=== PATIENT | male | born 1985 | race Caucasian/White ===

== ENCOUNTER 2018-11-25 19:02 | Inpatient (IN) | payer MEDICARE, MEDICAID ==
[~2018-11-25] VITALS: Ht 175.3 cm; Wt 63.5 kg
[2018-11-25 19:03] VITALS: BP 110/68
[2018-11-25] MEDS ORDERED: HALOPERIDOL1 MG ORAL (19:04)
--- NOTE | 2018-11-25 19:17 | NUR ---
ED Nurse Note: Patient was brought in by ambulance JULITA from [facility]. oral temp was 100.9F. per emt, patient has been off his psych meds for about 3 weeks. patient is awake, reports that he is cold, attempted to ask him further question but patient is verbally abusive threatening "don't touch me, I will kill you." Attempted to administer tylenol for pain but patient is agitated and not taking any medication at this time.
[2018-11-25] MEDS ORDERED: DiphenhydrAMINE 50mg/ml Inj IM ONE (19:30)
[2018-11-25] MEDS ORDERED: Haloperidol 5mg/ml Inj IM ONE (19:30)
--- NOTE | 2018-11-25 20:44 | Emergency Room Report ---
History of Present Illness General Chief Complaint: Behavioral Complaint Source: Patient (Reinaldo Samuels) Present Illness HPI 33-year-old male patient presents the ER brought in by ambulance complaining of behavioral disorder. Patient is a poor historian, currently saying "do not touch me" and "do not help me". Denies acute complaints. Reports has not been taking his psych meds for the past 3 weeks. Reports hearing voices. Denies SI or HI. States does not know the names of medications he is been taking. Patient is heard speaking to himself. Has a fever on presentation in the ER. Reports cough. (Reinaldo Samuels) Allergies: Coded Allergies: No Known Allergies (Unverified , 11/25/18) Patient History Past Medical History: see triage record Reviewed Nursing Documentation: PMH: Agreed; PSxH: Agreed (Reinaldo Samuels) Nursing Documentation-PMH Past Medical History: No History, Except For History Of Psychiatric Problem: Yes - bipolar (Reinaldo Samuels) Review of Systems All Other Systems: negative except mentioned in HPI (Reinaldo Samuels) Physical Exam Vital Signs Date Time Temp Pulse Resp B/P (MAP) Pulse Ox O2 Delivery O2 Flow Rate FiO2 11/25/18 18:57 100.9 110 18 110/68 98 Room Air Sp02 EP Interpretation: reviewed, normal General Appearance: well appearing, no apparent distress, alert, GCS 15, non- toxic Head: normocephalic, atraumatic Eyes: bilateral eye normal inspection, bilateral eye PERRL ENT: hearing grossly normal, normal pharynx, no angioedema, normal voice Neck: full range of motion, no meningismus Respiratory: lungs clear, normal breath sounds, no rhonchi, no respiratory distress, no accessory muscle use, no wheezing, speaking full sentences Cardiovascular #1: regular rate, rhythm, no edema Gastrointestinal: non tender, soft, no mass, non-distended, no guarding, no rebound Genitourinary: no CVA tenderness Musculoskeletal: back normal, digits/nails normal, gait/station normal, normal range of motion, non-tender Neurologic: alert, oriented x3, responsive, motor strength/tone normal, sensory intact, other - negative Peterson (Abril,Reinaldo P.A.) Procedures Lumbar Puncture Consent: Other Location: L4-L5 Anesthesia: 1% Lidocaine Volume Anesthetic (ccs): 3 Prep: bedadine Needle Size: 2 1/2 CSF: clear Post-Procedure: recumbent position Attempts: One Complications: none Patient Tolerated: Well (Jacques Peterson MD) Procedural Sedation Consent: Emergent Time out called at: 23:50 Pre-Sedation Assessment: Eval. Immed. Prior to Sed Airway Assessment (Malampati): I Heart: normal Lungs: normal Abdomen: normal Extremities: normal Procedures/Plans: Other - lumbar puncture Plan for Moderate Sedation: Other - ketamine ASA Score: I Procedure Narrative Patient was given IV ketamine slowly 120 mg. Patient was subsequent noted to have adequate sedation. Procedure was subsequently performed without any complications. Start Time: 23:55 End Time: 00:05 Communication: continued confusion Mental Status: confused Skin Condition: WNL Abdomen: WNL Nausea: NO Vomiting: NO (Jacques Peterson MD) Medical Decision Making PA Attestation Dr. Peterson is my supervising Physician whom patient management has been discussed with. (Reinaldo Samuels P.A.) Diagnostic Impression: Primary Impression: Behavioral disorder Additional Impression: Febrile illness, acute ER Course Pt. presents to the ED c/o behavioral complaint. Ddx considered but are not limited to anxiety, depression, drug use, alcohol use , behavioral disorder, influenza, sepsis, UTI, pneumonia, URI, meningitis. No meningismus, negative Brudzinski, low suspicion for meningitis. Vital signs: are WNL, pt. is febrile. With Tylenol in the ER. Ordered labs, urine drug screen, serum alcohol. ER COURSE: Patient being abrasion, believe patient requires, sedation provided with Haldol and Benadryl while in the ER. On repeat exam patient is resting comfortably no acute distress, more Physical exam benign. Chest x-ray negative for acute disease. CBC shows small elevation WBC with left shift. Provide patient with Tamiflu and Rocephin to cover for possible influenza and bacterial infection. CMP unremarkable UA negative Urine drug screen negative Lactic Acid WNL No elevation in serum alcohol, no elevation in acetaminophen or salicylate levels Influenza swab negative. We will admit patient for psychosis and fever. Discussed patient care with Dr. Peterson, agrees with assessment treatment plan. Calm and able to answer questions. Denies acute complaints. No meningismus, low suspicion for meningitis. Patient to be admitted to Dr. Blackwood for psychosis and acute febrile illness. LP performed by Dr. Peterson while in the ER. - Please note that this Emergency Department Report was dictated using [employer]itting machine fixer head technology software, occasionally this can lead to erroneous entry secondary to interpretation by the dictation equipment. [employer] [facility] Test 11/25/18 21:06 11/25/18 21:54 White Blood Count 11.9 K/UL (4.8-10.8) Red Blood Count 4.03 M/UL (4.70-6.10) Hemoglobin 12.0 G/DL (14.2-18.0) Hematocrit 35.3 % (42.0-52.0) Mean Corpuscular Volume 88 FL (80-99) Mean Corpuscular Hemoglobin 29.8 PG (27.0-31.0) Mean Corpuscular Hemoglobin Concent 34.1 G/DL (32.0-36.0) Red Cell Distribution Width 12.4 % (11.6-14.8) Platelet Count 212 K/UL (150-450) Mean Platelet Volume 5.8 FL (6.5-10.1) Neutrophils (%) (Auto) 79.8 % (45.0-75.0) Lymphocytes (%) (Auto) 11.1 % (20.0-45.0) Monocytes (%) (Auto) 6.4 % (1.0-10.0) Eosinophils (%) (Auto) 2.1 % (0.0-3.0) Basophils (%) (Auto) 0.6 % (0.0-2.0) Sodium Level 133 MMOL/L (136-145) Potassium Level 3.4 MMOL/L (3.5-5.1) Chloride Level 100 MMOL/L (98-107) Carbon Dioxide Level 26 MMOL/L (21-32) Anion Gap 7 mmol/L (5-15) Blood Urea Nitrogen 16 mg/dL (7-18) Creatinine 0.9 MG/DL (0.55-1.30) Estimat Glomerular Filtration Rate > 60 mL/min (>60) Glucose Level 131 MG/DL (74-106) Lactic Acid Level 1.70 mmol/L (0.4-2.0) Calcium Level 7.9 MG/DL (8.5-10.1) Total Bilirubin 0.6 MG/DL (0.2-1.0) Aspartate Amino Transf (AST/SGOT) 25 U/L (15-37) Alanine Aminotransferase (ALT/SGPT) 22 U/L (12-78) Alkaline Phosphatase 73 U/L (46-116) Total Protein 6.2 G/DL (6.4-8.2) Albumin 3.1 G/DL (3.4-5.0) Globulin 3.1 g/dL Albumin/Globulin Ratio 1.0 (1.0-2.7) Salicylates Level < 0.2 ug/mL (2.8-20) Acetaminophen Level 4 MCG/ML (10-30) Serum Alcohol < 3 mg/dL Urine Color Pale yellow Urine Appearance Clear Urine pH 7 (4.5-8.0) Urine Specific [place] 1.005 (1.005-1.035) Urine Protein Negative (NEGATIVE) Urine Glucose (UA) Negative (NEGATIVE) Urine Ketones Negative (NEGATIVE) Urine Blood Negative (NEGATIVE) Urine Nitrite Negative (NEGATIVE) Urine Bilirubin Negative (NEGATIVE) Urine Urobilinogen Normal MG/DL (0.0-1.0) Urine Leukocyte Esterase Negative (NEGATIVE) Urine Opiates Screen Negative (NEGATIVE) Urine Barbiturates Screen Negative (NEGATIVE) Phencyclidine (PCP) Screen Negative (NEGATIVE) Urine Amphetamines Screen Negative (NEGATIVE) Urine Benzodiazepines Screen Negative (NEGATIVE) Urine Cocaine Screen Negative (NEGATIVE) Urine Marijuana (THC) Screen Negative (NEGATIVE) (Reinaldo Samuels.A.) ER Course . Patient presented for altered mental status and fever. Differential diagnosis include was not limited to meningitis, viral encephalitis, pneumonia influenza, urinary tract infection, cholangitis among others. Because of complexity of patient's case laboratory testing and imaging studies were ordered. Patient was noted to have slightly elevated white blood count with a left shift. Patient does not show any evidence of focal infection. Chest x- ray read by radiology showed no evidence of acute infiltrate. Patient was started on IV antibiotics. Lumbar puncture was performed with ketamine sedation due to patient's confusion and high fever. Patient was noted to be disoriented with inability to correctly state the year. Patient was given IV antibiotics. Dr. Nikolas Blackwood was contacted for inpatient management due to panel physician. ..Spinal tap was performed under sedation with ketamine. Patient tolerated procedure well. Patient will be admitted for further evaluation of acute febrile illness and management of psychosis. (Jacques Peterson MD) Chest X-Ray Diagnostic Results Chest X-Ray Diagnostic Results : Chest X-Ray Ordered: Yes # of Views/Limited/Complete: 1 View Indication: Chest Pain EP Interpretation: Yes PA Xray: Interpretation reviewed, by supervising MD, and agrees with findings. Interpretation: no consolidation, no effusion, no pneumothorax, no acute cardiopulmonary disease Impression: No acute disease KEYSHAWN Scribe Text Jeramy Samuels PA-C (Reinaldo Samuels P.AVahid) CT/MRI/US Diagnostic Results CT/MRI/US Diagnostic Results : Imaging Test Ordered: CT head Impression No acute infarct, hemorrhage, mass or edema. (Reinaldo Samuels P.AVahid) Last Vital Signs Date Time Temp Pulse Resp B/P (MAP) Pulse Ox O2 Delivery O2 Flow Rate FiO2 11/25/18 19:07 110 18 Room Air 11/25/18 19:03 100.9 110/68 98 (Reinaldo Samuels P.AVahid) Status: unchanged (Jacques Peterson MD) Disposition: ADMITTED INPATIENT Condition: Serious Referrals: NOT CHOSEN IPA/,REFERRING (PCP) Reinaldo Samuels Nov 25, 2018 20:44 Jacques Peterson MD Nov 26, 2018 00:08
--- NOTE | 2018-11-25 20:46 | Diagnostic Imaging Report ---
EXAM: XR Chest, 1 View CLINICAL HISTORY: PAIN TECHNIQUE: Frontal view of the chest. COMPARISON: No relevant prior studies available. FINDINGS: Lungs: Unremarkable. No consolidation. Pleural space: Unremarkable. No pneumothorax. Heart: Unremarkable. No cardiomegaly. Mediastinum: Unremarkable. Bones/joints: Unremarkable. IMPRESSION: Normal chest x-ray.
[2018-11-25 21:20] VITALS: BP 115/71
[2018-11-25 21:21] LABS: BASOPHILS % (AUTO) 0.6 % (0.0-2.0); EOSINOPHILS % (AUTO) 2.1 % (0.0-3.0); HEMATOCRIT 35.3 % (42.0-52.0); LYMPHOCYTES % (AUTO) 11.1 % (20.0-45.0); MEAN CORPUSCULAR VOLUME 88 FL (80-99); MONOCYTES % (AUTO) 6.4 % (1.0-10.0); NEUTROPHILS % (AUTO) 79.8 % (45.0-75.0); PLATELET COUNT 212 K/UL (150-450); RED BLOOD COUNT 4.03 M/UL (4.70-6.10); RED CELL DISTRIBUTION WIDTH 12.4 % (11.6-14.8); WHITE BLOOD COUNT 11.9 K/UL (4.8-10.8)
[2018-11-25 21:33] LABS: ANION GAP 7 mmol/L (5-15); BLOOD UREA NITROGEN 16 mg/dL (7-18); CALCIUM 7.9 MG/DL (8.5-10.1); CARBON DIOXIDE 26 MMOL/L (21-32); CHLORIDE 100 MMOL/L (98-107); CREATININE 0.9 MG/DL (0.55-1.30); POTASSIUM 3.4 MMOL/L (3.5-5.1); SODIUM 133 MMOL/L (136-145)
[2018-11-25 21:37] LABS: ALANINE AMINOTRANSFERASE 22 U/L (12-78); ALBUMIN 3.1 G/DL (3.4-5.0); ALKALINE PHOSPHATASE 73 U/L (46-116); ASPARTATE AMINO TRANSFERASE 25 U/L (15-37); BILIRUBIN,TOTAL 0.6 MG/DL (0.2-1.0)
[2018-11-25] MEDS ORDERED: Oseltamivir 75mg cap ORAL ONE (22:04)
[2018-11-25 22:13] LABS: APPEARANCE,URINE CLEAR; BILIRUBIN, URINE NEGATIVE (NEGATIVE); COLOR,URINE PALE YELLOW; GLUCOSE, URINE (UA) NEGATIVE (NEGATIVE); KETONES,URINE NEGATIVE (NEGATIVE); LEUKOCYTE ESTERASE ,URINE NEGATIVE (NEGATIVE); NITRITE,URINE NEGATIVE (NEGATIVE); PH,URINE 7 (4.5-8.0); PROTEIN,URINE NEGATIVE (NEGATIVE); UROBILINOGEN,URINE NORMAL MG/DL (0.0-1.0)
[2018-11-25] MEDS ORDERED: cefTRIAXone 1 GM in NS 55 ML IVPB ONE (22:15)
[2018-11-25] MEDS ORDERED: Lidocaine 1% MPF 10mg/ml 5ml IM ONE (23:15)
[2018-11-25 23:40] VITALS: BP 116/72
[2018-11-25] MEDS ORDERED: Ketamine 500mg Inj IV ONE (23:45)
--- NOTE | 2018-11-25 23:45 | NUR ---
HAND-OFF: Pt was moved to Room Trauma [facility] by Dr. Peterson. Report given to Jazmin/RN for continue care. Pt is awake, still very agitated at this time.
[2018-11-25 23:50] VITALS: BP 102/53
--- NOTE | 2018-11-25 23:52 | Diagnostic Imaging Report ---
EXAM: CT Head Without Intravenous Contrast CLINICAL HISTORY: AMS TECHNIQUE: Axial computed tomography images of the head/brain without intravenous contrast. CTDI is 0.15, 70.38 mGy and DLP is 1499 mGy-cm. One or more of the following dose reduction techniques were used: automated exposure control, adjustment of the mA and/or kV according to patient size, use of iterative reconstruction technique. COMPARISON: No relevant prior studies available. FINDINGS: Brain: No acute infarct, hemorrhage, mass or edema. No significant white matter disease. Ventricles: Unremarkable. No ventriculomegaly. Bones/joints: Age-indeterminate fracture of the left nasal bone. No acute calvarial abnormality. Soft tissues: Unremarkable. Sinuses: Mild mucosal thickening in the paranasal sinuses. Mastoid air cells: Unremarkable as visualized. No mastoid effusion. IMPRESSION: No acute infarct, hemorrhage, mass or edema.
--- NOTE | 2018-11-26 00:30 | NUR ---
ED Nurse Note: Verified w/ ERMD regarding pt's admit status to [facility], ERMD stated pt is clear to go to [facility] instead of tele. ERMD notified regarding pt's lab status as well, no new orders received. ERMD notified pt' temp 103, received order for toradol 30mg via IV. cooling measures done.
--- NOTE | 2018-11-26 01:14 | NUR ---
ED Nurse Note: REPORT GIVEN TO LILIAM RUIZ, PT AWAKE, AMBULATED W/ STEADY GAIT TO RESTROOM, AIRWAY INTACT, RESP EVEN AND UNLABORED, NO DISTRESS AT THIS TIME.
[2018-11-26] MEDS ORDERED: Ketorolac 30mg Inj IV ONE (01:15)
--- NOTE | 2018-11-26 01:30 | NUR ---
ED Nurse Note: pt transferred to MS via gurney, All belongings sent with pt, sitter present on MS, vss, airway intact, resp even and unlabored, arousable to light shake, no neuro changes.
[2018-11-26 01:40] VITALS: BP 88/42
--- NOTE | 2018-11-26 02:07 | NUR ---
NURSE NOTES: Received report from LILIAM Sahu from ED. Patient arrived via gurney, mildly sedated. Robb Catalan, at bedside as patient reported as combative. IV site asymptomatic. Temp at 100.5 upon arrival to unit. Contacted Dr Blackwood for admission orders. Belongings checked and recorded. Patient oriented to room. Bed on lowest position, 3 side rails up, call light within reach.
[2018-11-26 04:00] VITALS: BP 130/53
[2018-11-26] MEDS ORDERED: D5 1/2NS 1,000 ML IV SCH (06:00)
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
[2018-11-26] MEDS ORDERED: LORazepam Inj 2mg/ml 1ml IM ONE (07:15)
[2018-11-26] MEDS ORDERED: Haloperidol 5mg/ml Inj IM ONE (07:15)
[2018-11-26] MEDS ORDERED: DiphenhydrAMINE 50mg/ml Inj IM ONE (07:15)
--- NOTE | 2018-11-26 07:46 | NUR ---
HAND-OFF: Report given to LILIAM Sarmiento. Patient became combative at 0600, called security, Dr Mary medina. Sitter at the bedside.
--- NOTE | 2018-11-26 07:51 | NUR ---
NURSE NOTES: Received patient asleep. Easily arousable. With 4 point restraints for combative behavior. With sitter at bedside. No IV access at this time. MD aware. will attempt to start. Bed in lowest position. Will continue to monitor.
[2018-11-26 08:00] VITALS: BP 124/66
[2018-11-26] MEDS: Heparin 5000 units/ml inj SUBQ SCH ×3 (08:28→22:24)
[2018-11-26] MEDS: Azithromycin 250mg tab ORAL SCH (08:28)
[2018-11-26] MEDS ORDERED: Oseltamivir 75mg cap ORAL SCH (09:00)
--- NOTE | 2018-11-26 09:42 | History & Physical ---
History and Physical History & Physicial History and Physical HPI Patient is a 33-year-old male patient presents the ER brought in by ambulance complaining of behavioral disorder. Noted to have high fever, altered mental status in the ED, no seizures of focal signs. Patient is a poor historian, currently saying "do not touch me" and "do not help me". Denies acute complaints. Reports has not been taking his psych meds for the past 3 weeks. Reports hearing voices. Denies SI or HI. States does not know the names of medications he is been taking. Patient is heard speaking to himself. Reports cough. CXR no infiltrates, UA negative, CT head negative, LP negative, Influenza Negative Allergies: No Known Allergies Past Medical History: - bipolar All Other Systems: negative except mentioned in HPI Physical Exam Vital Signs Noted Date Time Temp Pulse Resp B/P (MAP) Pulse Ox O2 Delivery O2 Flow Rate FiO2 11/25/18 18:57 100.9 110 18 110/68 98 Room Air General Appearance: Chronically ill appearing, unkempt, confused, agitated toxic apperaing Head: normocephalic, atraumatic Eyes: bilateral eye normal inspection, bilateral eye PERRL ENT: hearing grossly normal, normal pharynx, no angioedema, normal voice Neck: full range of motion, no meningismus Respiratory: lungs clear, normal breath sounds, no rhonchi, no respiratory distress, no accessory muscle use, no wheezing, speaking full sentences Cardiovascular: HS1, HS2 RRR, regular rate, rhythm, no edema Gastrointestinal: non tender, soft, no mass, non-distended, no guarding, no rebound Genitourinary: no CVA tenderness Musculoskeletal: back normal, digits/nails normal, gait/station normal, normal range of motion, non-tender Neurologic: agitated, oriented x3, responsive, motor strength/tone normal, sensory intact, other - negative Brudzijosiki Impression: Fever, Altered mental status Behavioral disorder Bipolar disorder Cough, no pneumonia on CXR Plan: Broad spectrum antibiotics Psychiatry, Neurology and Infectious Disease Referrals Sedation PRN IVF Labs PPX O2 PRN Thiamine Labs Test 11/25/18 21:06 11/25/18 21:54 White Blood Count 11.9 K/UL (4.8-10.8) Red Blood Count 4.03 M/UL (4.70-6.10) Hemoglobin 12.0 G/DL (14.2-18.0) Hematocrit 35.3 % (42.0-52.0) Mean Corpuscular Volume 88 FL (80-99) Mean Corpuscular Hemoglobin 29.8 PG (27.0-31.0) Mean Corpuscular Hemoglobin Concent 34.1 G/DL (32.0-36.0) Red Cell Distribution Width 12.4 % (11.6-14.8) Platelet Count 212 K/UL (150-450) Mean Platelet Volume 5.8 FL (6.5-10.1) Neutrophils (%) (Auto) 79.8 % (45.0-75.0) Lymphocytes (%) (Auto) 11.1 % (20.0-45.0) Monocytes (%) (Auto) 6.4 % (1.0-10.0) Eosinophils (%) (Auto) 2.1 % (0.0-3.0) Basophils (%) (Auto) 0.6 % (0.0-2.0) Sodium Level 133 MMOL/L (136-145) Potassium Level 3.4 MMOL/L (3.5-5.1) Chloride Level 100 MMOL/L (98-107) Carbon Dioxide Level 26 MMOL/L (21-32) Anion Gap 7 mmol/L (5-15) Blood Urea Nitrogen 16 mg/dL (7-18) Creatinine 0.9 MG/DL (0.55-1.30) Estimat Glomerular Filtration Rate > 60 mL/min (>60) Glucose Level 131 MG/DL (74-106) Lactic Acid Level 1.70 mmol/L (0.4-2.0) Calcium Level 7.9 MG/DL (8.5-10.1) Total Bilirubin 0.6 MG/DL (0.2-1.0) Aspartate Amino Transf (AST/SGOT) 25 U/L (15-37) Alanine Aminotransferase (ALT/SGPT) 22 U/L (12-78) Alkaline Phosphatase 73 U/L (46-116) Total Protein 6.2 G/DL (6.4-8.2) Albumin 3.1 G/DL (3.4-5.0) Globulin 3.1 g/dL Albumin/Globulin Ratio 1.0 (1.0-2.7) Salicylates Level < 0.2 ug/mL (2.8-20) Acetaminophen Level 4 MCG/ML (10-30) Serum Alcohol < 3 mg/dL Urine Color Pale yellow Urine Appearance Clear Urine pH 7 (4.5-8.0) Urine Specific [place] 1.005 (1.005-1.035) Urine Protein Negative (NEGATIVE) Urine Glucose (UA) Negative (NEGATIVE) Urine Ketones Negative (NEGATIVE) Urine Blood Negative (NEGATIVE) Urine Nitrite Negative (NEGATIVE) Urine Bilirubin Negative (NEGATIVE) Urine Urobilinogen Normal MG/DL (0.0-1.0) Urine Leukocyte Esterase Negative (NEGATIVE) Urine Opiates Screen Negative (NEGATIVE) Urine Barbiturates Screen Negative (NEGATIVE) Phencyclidine (PCP) Screen Negative (NEGATIVE) Urine Amphetamines Screen Negative (NEGATIVE) Urine Benzodiazepines Screen Negative (NEGATIVE) Urine Cocaine Screen Negative (NEGATIVE) Urine Marijuana (THC) Screen Negative (NEGATIVE) CXR no infiltrates, UA negative, CT head negative, LP negative, Influenza Negative Chest X-Ray Impression: No acute disease,no consolidation, no effusion, no pneumothorax , no acute cardiopulmonary disease CT head Impression No acute infarct, hemorrhage, mass or edema. Tj Hernandez MD Nov 26, 2018 09:42
[2018-11-26] MEDS ORDERED: LORazepam Inj 2mg/ml 1ml IV PRN (09:45)
[2018-11-26 10:02] VITALS: BP 112/66
[2018-11-26] MEDS: D5NS 1,000 ML IV SCH ×2 (10:11→22:25)
--- NOTE | 2018-11-26 10:53 | NUR ---
NURSE NOTES: Dr. Lee and Trevor made aware of Consult order. Spoke with Dr. Ojeda, made aware of patient behavior. Patient very agitated and combative even after Ativan dose. per MD , may dc sitter only when patient calm. and will se patient in PM. noted. will cont to monitor patient.
[2018-11-26] MEDS ORDERED: cefTRIAXone 2 GM in D5W 55 ML IVPB SCH (11:00)
[2018-11-26] MEDS ORDERED: DiphenhydrAMINE 50mg/ml Inj IM SCH ×2 (11:00→20:30)
[2018-11-26] MEDS ORDERED: Haloperidol 5mg/ml Inj IM SCH ×2 (11:00→20:30)
[2018-11-26 12:00] VITALS: BP 122/66
[2018-11-26] MEDS ORDERED: Vancomycin 1250mg/D5W 275ml IVPB ONE (12:00)
[2018-11-26] MEDS ORDERED: Ampicillin 2 GM in NS 110 ML IV SCH (13:00)
--- NOTE | 2018-11-26 13:24 | NUR ---
CASE MANAGEMENT: REVIEW PRESENTED TO ED FROM STREETS CC: FEVER . HEARING VOICES SI: A-FIB . AMS LUMBAR PUNCTURE 11/25 T 103.8 HR 110 RR 18 BP 110/68 SAT 98% ROOM AIR WBC 11.9 H/H 12.0/35.3 NA 133 K 3.4 IS: TYLENOL PO X1 HALDOL IM X1 BENADRYL IM X1 CEFTRIAXONE IV X1 INTERQUAL CRITERIA MET: PATIENT ADMITTED TO MED/SURG UNIT 11/25/2018 DCP: PATIENT IS FROM HOME
--- NOTE | 2018-11-26 15:20 | NUR ---
NURSE NOTES: patient seen by Dr. Ojeda. with order to DC sitter.
[2018-11-26] MEDS: Vancomycin 750mg/NS 275ml IVPB SCH ×4 (15:31→15:32)
--- NOTE | 2018-11-26 15:41 | Infectious Diseases Prog Note ---
Assessment/Plan Assessment/Plan Full consult to follow: A) 1) sepsis, ams, fevers, leukocytosis, ? source 2) LP noted, doubt meningitis 3) ? influenza infection/viral syndrome 4) bipolar disease P) 1) on vancomycin, ceftriaxone, ampicillin and tamiflu 2) check cultures, labs and chest x-ray, check final csf culture 3) thank you Subjective Allergies: Coded Allergies: No Known Allergies (Unverified , 11/25/18) Objective Vital Signs Last 24 Hour Vital Signs Date Time Temp Pulse Resp B/P (MAP) Pulse Ox O2 Delivery O2 Flow Rate FiO2 11/26/18 12:00 98.1 82 18 122/66 (84) 96 11/26/18 10:02 97.5 86 18 112/66 (81) 96 11/26/18 09:00 Room Air 11/26/18 08:00 97.5 86 18 124/66 (85) 96 11/26/18 04:00 98.2 94 20 130/53 (78) 96 11/26/18 01:47 Room Air 11/26/18 01:40 100.5 103 16 88/42 (57) 97 11/26/18 01:39 100.5 11/26/18 01:27 103.0 103 18 108/87 98 Room Air 11/25/18 23:50 103.8 114 18 98 Room Air 122 98 108 98 107 98 104 11/25/18 23:40 100.1 106 18 116/72 98 Room Air 11/25/18 22:32 100.1 11/25/18 21:20 103.1 98 18 115/71 98 Room Air 11/25/18 20:09 100.2 11/25/18 19:07 110 18 Room Air 11/25/18 19:03 100.9 110 18 110/68 98 Room Air 11/25/18 18:57 100.9 110 18 110/68 98 Room Air Height (Feet): 5 Height (Inches): 9.00 Weight (Pounds): 140 Microbiology Date/Time Source Procedure Growth Status 11/25/18 23:55 Cerebral Spinal Fluid Gram Stain - Final Resulted 11/25/18 23:55 Cerebral Spinal Fluid CSF Culture Pending Resulted 11/25/18 22:19 Nasal Nares Influenza Types A,B Antigen (RADHA) - Final Complete Laboratory Tests Test 11/25/18 21:06 11/25/18 21:54 11/25/18 23:55 White Blood Count 11.9 K/UL (4.8-10.8) H Red Blood Count 4.03 M/UL (4.70-6.10) L Hemoglobin 12.0 G/DL (14.2-18.0) L Hematocrit 35.3 % (42.0-52.0) L Mean Corpuscular Volume 88 FL (80-99) Mean Corpuscular Hemoglobin 29.8 PG (27.0-31.0) Mean Corpuscular Hemoglobin Concent 34.1 G/DL (32.0-36.0) Red Cell Distribution Width 12.4 % (11.6-14.8) Platelet Count 212 K/UL (150-450) Mean Platelet Volume 5.8 FL (6.5-10.1) L Neutrophils (%) (Auto) 79.8 % (45.0-75.0) H Lymphocytes (%) (Auto) 11.1 % (20.0-45.0) L Monocytes (%) (Auto) 6.4 % (1.0-10.0) Eosinophils (%) (Auto) 2.1 % (0.0-3.0) Basophils (%) (Auto) 0.6 % (0.0-2.0) Sodium Level 133 MMOL/L (136-145) L Potassium Level 3.4 MMOL/L (3.5-5.1) L Chloride Level 100 MMOL/L (98-107) Carbon Dioxide Level 26 MMOL/L (21-32) Anion Gap 7 mmol/L (5-15) Blood Urea Nitrogen 16 mg/dL (7-18) Creatinine 0.9 MG/DL (0.55-1.30) Estimat Glomerular Filtration Rate > 60 mL/min (>60) Glucose Level 131 MG/DL (74-106) H Lactic Acid Level 1.70 mmol/L (0.4-2.0) Calcium Level 7.9 MG/DL (8.5-10.1) L Total Bilirubin 0.6 MG/DL (0.2-1.0) Aspartate Amino Transf (AST/SGOT) 25 U/L (15-37) Alanine Aminotransferase (ALT/SGPT) 22 U/L (12-78) Alkaline Phosphatase 73 U/L (46-116) Total Protein 6.2 G/DL (6.4-8.2) L Albumin 3.1 G/DL (3.4-5.0) L Globulin 3.1 g/dL Albumin/Globulin Ratio 1.0 (1.0-2.7) Salicylates Level < 0.2 ug/mL (2.8-20) L Acetaminophen Level 4 MCG/ML (10-30) L Serum Alcohol < 3 mg/dL Urine Color Pale yellow Urine Appearance Clear Urine pH 7 (4.5-8.0) Urine Specific [place] 1.005 (1.005-1.035) Urine Protein Negative (NEGATIVE) Urine Glucose (UA) Negative (NEGATIVE) Urine Ketones Negative (NEGATIVE) Urine Blood Negative (NEGATIVE) Urine Nitrite Negative (NEGATIVE) Urine Bilirubin Negative (NEGATIVE) Urine Urobilinogen Normal MG/DL (0.0-1.0) Urine Leukocyte Esterase Negative (NEGATIVE) Urine Opiates Screen Negative (NEGATIVE) Urine Barbiturates Screen Negative (NEGATIVE) Phencyclidine (PCP) Screen Negative (NEGATIVE) Urine Amphetamines Screen Negative (NEGATIVE) Urine Benzodiazepines Screen Negative (NEGATIVE) Urine Cocaine Screen Negative (NEGATIVE) Urine Marijuana (THC) Screen Negative (NEGATIVE) CSF Appearance Clear (Clear) CSF Color Colorless (Colorless) CSF WBC 0 /CU MM (0-5) CSF RBC 1 /CU MM CSF Neutrophils % % CSF Lymphocytes % % CSF Monocytes % % CSF Crenated Cells % CSF Comment CSF Glucose 69 mg/dL (50-80) CSF Total Protein 23 MG/DL (15-45) Current Medications Medications (Trade) Dose Ordered Sig/Vitalyi Route PRN Reason Start Time Stop Time Status Last Admin Dose Admin Acetaminophen (Tylenol) 650 mg Q4H PRN ORAL Mild Pain/Temp > 100.5 11/26/18 04:45 12/26/18 04:44 Ampicillin 2 gm/ Sodium Chloride 110 ml @ 220 mls/hr Q4HR IV 11/26/18 13:00 12/03/18 12:59 11/26/18 14:42 Azithromycin (Zithromax) 500 mg DAILY ORAL 11/26/18 09:00 12/03/18 08:59 Ceftriaxone Sodium 2 gm/ Dextrose 55 ml @ 110 mls/hr EVERY 12 HOURS IVPB 11/26/18 11:00 12/03/18 10:59 11/26/18 13:55 Dextrose/Sodium Chloride 1,000 ml @ 100 mls/hr Q10H IV 11/26/18 10:00 12/26/18 09:59 11/26/18 10:11 Heparin Sodium (Porcine) (Heparin 5000 units/ml) 5,000 units EVERY 12 HOURS SUBQ 11/26/18 09:00 12/26/18 08:59 Lorazepam (Ativan 2mg/ml 1ml) 2 mg Q4H PRN IM For Anxiety 11/26/18 11:00 12/03/18 10:59 Ondansetron HCl (Zofran) 4 mg Q6H PRN IVP Nausea & Vomiting 11/26/18 04:45 12/26/18 04:44 Vancomycin HCl (Vanco rx to dose) 1 ea DAILY PRN MISC Per rx protocol 11/26/18 09:45 12/26/18 09:44 Vancomycin HCl 750 mg/Sodium Chloride 275 ml @ 183.333 mls/hr Q8HR@0400,1200,2000 IVPB 11/26/18 20:00 12/01/18 19:59 11/26/18 15:32 Jacinta Soto MD Nov 26, 2018 15:41
--- NOTE | 2018-11-26 16:12 | NUR ---
HAND-OFF: Report given to LILIAM Spencer.
--- NOTE | 2018-11-26 17:15 | Consultation ---
DATE OF CONSULTATION: 11/26/2018 INFECTIOUS DISEASE CONSULTATION CONSULTING PHYSICIAN: Jacinta Soto M.D. ATTENDING PHYSICIAN: Nikolas Blackwood M.D. REFERRING PHYSICIAN: Tj Hernandez M.D. REASON FOR CONSULTATION: Sepsis, rule out meningitis, febrile illness, and psychosis. CHIEF COMPLAINT: The patient's chief complaint coming into the hospital is febrile illness, sepsis, altered mental status, and psychosis. HISTORY OF PRESENT ILLNESS: This is a 33-year-old male, who has history of bipolar disease, who comes in to [facility] with altered mental status and a febrile illness. The patient's temperature was significantly high, as high as 103.8. Because of the altered mental status, the patient had a CT scan of the head, which was negative for any acute process. The patient had a chest x-ray, which showed no acute disease. The patient had a lumbar puncture, which had 0 white cells and normal glucose and protein. The patient was started on Rocephin, ampicillin, and vancomycin. There is a concern if the patient has meningitis. The patient's influenza screen was negative, however, this is not a PCR screen. The patient was also continued on Tamiflu. Cultures are pending. MAR was noted. Orders were noted. Notes and records were reviewed. Case was discussed with RN. The patient is a very poor historian. PAST MEDICAL HISTORY: The patient's past medical history includes the following. The patient has a past medical history of bipolar disease and behavioral disorder. He has no history of diabetes or hypertension mentioned. Main issue is behavior disorder and bipolar disease. No diabetes. No hypertension. No coronary artery disease. No cancer history. MEDICATIONS: Upon reviewing the MAR, the patient is on following medications. He is on vancomycin, ampicillin, and Rocephin. The patient is on lorazepam. Azithromycin is given daily. He is on Tamiflu. He is on heparin, acetaminophen, and Zofran. Outside medications were noted and reconciliated. Antibiotics, ampicillin, vancomycin, Rocephin, azithromycin, and Tamiflu. ALLERGIES: No known drug allergies. SOCIAL HISTORY: Per the records, there is no mention of smoking, alcohol, or drug abuse. FAMILY HISTORY: Noncontributory. No mention of tuberculosis or cancer. REVIEW OF SYSTEMS: CONSTITUTIONAL: He came in with fevers of 103.8. He came with altered mental status, I believe, acute psychosis. He was very agitated. Currently, he did have a fever of 103.8. Currently, he is sedated. Could not assess really review of systems otherwise. He does not have a rash or seizures. SKIN: He does not have a rash. NEUROLOGIC: No seizures. PULMONARY: No significant congestion, shortness of breath, hemoptysis, or secretions noted. EXTREMITY: Could not assess. NEUROLOGIC: No seizures. SKIN: He has no rash. GASTROINTESTINAL: No nausea, vomiting, or diarrhea noted. CARDIAC: No pressors. He had generalized fatigue. Came in with agitation. No hemoptysis or secretions seen. No Mathews. Review of systems is otherwise limited in this patient. He is very sedated and altered in mental status. PHYSICAL EXAMINATION: VITAL SIGNS: Temperature 97.5, pulse rate 86, respiratory 18, blood pressure 112/66, and saturation 96%. T-max 103.8, pulse rate was as high as 110 and 122. Temperature now is 98.1, pulse rate 82, respiratory rate 18, and saturation 96%. GENERAL: Sedated, lethargic, and weak. HEAD AND NECK: Oral exam, no thrush. Eye exam, no icterus. Normocephalic. Neck seems to be supple. LUNGS: Fairly clear bilaterally. No obvious rhonchi or rales. HEART: Regular. No obvious gallop or murmur. ABDOMEN: Soft. Positive bowel sounds. SKIN: No other rash noted muscle. MUSCULOSKELETAL: No effusion. Legs are without cellulitis. PERIPHERAL VASCULAR: No cyanosis or gangrene. No ecchymosis noted. GENITOURINARY: No Mathews. LINE SITES: Without phlebitis. NEUROLOGIC: General weakness and poorly responsive. At this time, sedated. LABORATORY AND DIAGNOSTIC DATA: Laboratory data is as follows. CSF analysis showed only 0 white cells. Glucose 69 and protein 23. Culture, CSF is pending. UA was negative. Creatinine 0.9. LFTs noted. White count 11.[address] scan of the head showed no acute process. Chest x-ray was negative for pneumonia. ASSESSMENT AND PLAN: 1. The patient has what looks like altered mental status, fever, sepsis, tachycardia, SIRS criteria, and leukocytosis. Differential diagnosis includes possible viral syndrome such as influenza. The patient's influenza screen is negative. However, this is not PCR test and still I would consider this high in the differential. In addition, consider other viral syndromes. The question is if the patient has meningitis at this time. Based on the LP results, I do not think he has this at this time. However, awaiting CSF cultures. The patient will be continued on ampicillin, Rocephin, and vancomycin for sepsis. He is also on oral azithromycin and Tamiflu. I would give Tamiflu for 5 days total. Check followup laboratories and chest x-ray. Check cultures. Continue antibiotics for now. If CSF culture is negative, we will consider discontinuing antibiotics for meningitis treatment fairly soon. Case communicated with the pharmacy. 2. The patient has agitation and psychosis. 3. Bipolar disease. 4. No history of diabetes, hypertension, coronary artery disease, or cancer. 5. Allergies negative. 6. Social history is negative. 7. Family history is noncontributory. 8. MAR was noted. 9. Case was discussed with RN. 10. Continue treatment per primary consultants. 11. Notes and records were noted. Orders were entered. Jacinta Soto M.D. DR: TRISHA JOB#: [id number] CC:
[2018-11-26] MEDS: Oseltamivir 75mg cap ORAL SCH (17:51)
--- NOTE | 2018-11-26 18:05 | NUR ---
NURSE NOTES: Charge nurse noticed lice on the bed next to patient's head. MD Hernandez was made aware.
[2018-11-26 18:21] LABS: BASOPHILS % (AUTO) 0.5 % (0.0-2.0); EOSINOPHILS % (AUTO) 3.8 % (0.0-3.0); HEMATOCRIT 34.7 % (42.0-52.0); HEMOGLOBIN 11.9 G/DL (14.2-18.0); LYMPHOCYTES % (AUTO) 18.1 % (20.0-45.0); MEAN CORPUSCULAR VOLUME 87 FL (80-99); MONOCYTES % (AUTO) 7.9 % (1.0-10.0); NEUTROPHILS % (AUTO) 69.6 % (45.0-75.0); PLATELET COUNT 186 K/UL (150-450); RED BLOOD COUNT 3.99 M/UL (4.70-6.10); RED CELL DISTRIBUTION WIDTH 12.5 % (11.6-14.8); WHITE BLOOD COUNT 10.7 K/UL (4.8-10.8)
[2018-11-26 18:25] LABS: ANION GAP 5 mmol/L (5-15); BLOOD UREA NITROGEN 12 mg/dL (7-18); CALCIUM 8.3 MG/DL (8.5-10.1); CARBON DIOXIDE 27 MMOL/L (21-32); CHLORIDE 105 MMOL/L (98-107); CREATININE 0.7 MG/DL (0.55-1.30); POTASSIUM 3.3 MMOL/L (3.5-5.1); SODIUM 137 MMOL/L (136-145)
--- NOTE | 2018-11-26 19:30 | NUR ---
Pt received asleep with soft wrist restraints on bilaterally. Bed locked in lowest position with call light in reach. Will continue to monitor patient.
--- NOTE | 2018-11-26 19:33 | NUR ---
HAND-OFF: Report given to LILIAM Coburn.
--- NOTE | 2018-11-26 20:00 | NUR ---
NURSE NOTES: Patient seen standing by the doorway, pulled out IV and let himself out of the restraints. Assisted back to bed, contacted Dr. Ojeda and made aware, re-scheduled 1100 IM benadryl and haldol to now.
[2018-11-26] MEDS: LORazepam Inj 2mg/ml 1ml IM PRN (20:15)
[2018-11-26] MEDS ORDERED: Lidocaine 1% MPF 10mg/ml 5ml INJ SCH (22:00)
[2018-11-26] MEDS ORDERED: Haloperidol 5mg/ml Inj IM PRN (22:15)
[2018-11-26] MEDS: Ampicillin 2 GM in NS 110 ML IV SCH (22:23)
--- NOTE | 2018-11-26 22:39 | Consultation ---
History of Present Illness General Chief Complaint: Behavioral Complaint Present Illness HPI 33-year-old male patient presents the ER brought in by ambulance complaining of behavioral disorder. the pt was confused however agitated the pt was given meds / urine tox clean but may have other drugs in the system Allergies: Coded Allergies: No Known Allergies (Unverified , 11/25/18) Medication History Scheduled Haloperidol* (Haldol*), Unknown Dose ORAL EVERY 6 HOURS, (Reported) Patient History Limited by: medical condition History Provided By: Medical Record, PMD Healthcare decision maker Resuscitation status Advanced Directive on File Past Medical/Surgical History Past Medical/Surgical History: (1) toxic enecephalopathy acute Review of Systems Psychiatric: Reports: prior hx, emotional problems Physical Exam General Appearance: alert, confused, agitated Last 24 Hour Vital Signs Date Time Temp Pulse Resp B/P (MAP) Pulse Ox O2 Delivery O2 Flow Rate FiO2 11/26/18 12:00 98.1 82 18 122/66 (84) 96 11/26/18 10:02 97.5 86 18 112/66 (81) 96 11/26/18 09:00 Room Air 11/26/18 08:00 97.5 86 18 124/66 (85) 96 11/26/18 04:00 98.2 94 20 130/53 (78) 96 11/26/18 01:47 Room Air 11/26/18 01:40 100.5 103 16 88/42 (57) 97 11/26/18 01:39 100.5 11/26/18 01:27 103.0 103 18 108/87 98 Room Air 11/25/18 23:50 103.8 114 18 98 Room Air 122 98 108 98 107 98 104 11/25/18 23:40 100.1 106 18 116/72 98 Room Air Intake and Output 11/25/18 11/26/18 19:00 07:00 Intake Total 220 ml Balance 220 ml Intake Oral 220 ml Laboratory Tests Test 11/25/18 23:55 11/26/18 17:50 CSF Appearance Clear (Clear) CSF Color Colorless (Colorless) CSF WBC 0 /CU MM (0-5) CSF RBC 1 /CU MM CSF Neutrophils % % CSF Lymphocytes % % CSF Monocytes % % CSF Crenated Cells % CSF Comment CSF Glucose 69 mg/dL (50-80) CSF Total Protein 23 MG/DL (15-45) White Blood Count 10.7 K/UL (4.8-10.8) Red Blood Count 3.99 M/UL (4.70-6.10) L Hemoglobin 11.9 G/DL (14.2-18.0) L Hematocrit 34.7 % (42.0-52.0) L Mean Corpuscular Volume 87 FL (80-99) Mean Corpuscular Hemoglobin 29.9 PG (27.0-31.0) Mean Corpuscular Hemoglobin Concent 34.3 G/DL (32.0-36.0) Red Cell Distribution Width 12.5 % (11.6-14.8) Platelet Count 186 K/UL (150-450) Mean Platelet Volume 6.2 FL (6.5-10.1) L Neutrophils (%) (Auto) 69.6 % (45.0-75.0) Lymphocytes (%) (Auto) 18.1 % (20.0-45.0) L Monocytes (%) (Auto) 7.9 % (1.0-10.0) Eosinophils (%) (Auto) 3.8 % (0.0-3.0) H Basophils (%) (Auto) 0.5 % (0.0-2.0) Sodium Level 137 MMOL/L (136-145) Potassium Level 3.3 MMOL/L (3.5-5.1) L Chloride Level 105 MMOL/L (98-107) Carbon Dioxide Level 27 MMOL/L (21-32) Anion Gap 5 mmol/L (5-15) Blood Urea Nitrogen 12 mg/dL (7-18) Creatinine 0.7 MG/DL (0.55-1.30) Estimat Glomerular Filtration Rate > 60 mL/min (>60) Glucose Level 94 MG/DL (74-106) Calcium Level 8.3 MG/DL (8.5-10.1) L HIV (1&2) Antibody Rapid Negative (NEGATIVE) Microbiology Date/Time Source Procedure Growth Status 11/25/18 23:55 Cerebral Spinal Fluid Gram Stain - Final Resulted 11/25/18 23:55 Cerebral Spinal Fluid CSF Culture Pending Resulted Height (Feet): 5 Height (Inches): 9.00 Weight (Pounds): 140 Medications Current Medications Medications (Trade) Dose Ordered Sig/Vitaliy Route PRN Reason Start Time Stop Time Status Last Admin Dose Admin Acetaminophen (Tylenol) 650 mg Q4H PRN ORAL Mild Pain/Temp > 100.5 11/26/18 04:45 12/26/18 04:44 Ampicillin 2 gm/ Sodium Chloride 110 ml @ 220 mls/hr Q6H IV 11/26/18 21:00 12/03/18 20:59 11/26/18 22:23 Azithromycin (Zithromax) 500 mg DAILY ORAL 11/26/18 09:00 12/03/18 08:59 Ceftriaxone Sodium 2 gm/ Dextrose 55 ml @ 110 mls/hr Q24H IVPB 11/27/18 14:00 12/04/18 13:59 Dextrose/Sodium Chloride 1,000 ml @ 100 mls/hr Q10H IV 11/26/18 10:00 12/26/18 09:59 11/26/18 22:25 Haloperidol Lactate (Haldol) 5 mg Q6H PRN IM Agitation 11/26/18 22:15 12/26/18 22:14 Heparin Sodium (Porcine) (Heparin 5000 units/ml) 5,000 units EVERY 12 HOURS SUBQ 11/26/18 09:00 12/26/18 08:59 11/26/18 22:24 Lorazepam (Ativan 2mg/ml 1ml) 2 mg Q4H PRN IM For Anxiety 11/26/18 11:00 12/03/18 10:59 11/26/18 20:15 Ondansetron HCl (Zofran) 4 mg Q6H PRN IVP Nausea & Vomiting 11/26/18 04:45 12/26/18 04:44 Oseltamivir Phosphate (Tamiflu) 75 mg TWICE A DAY ORAL 11/26/18 18:00 12/01/18 17:59 11/26/18 17:51 Vancomycin HCl (Vanco rx to dose) 1 ea DAILY PRN MISC Per rx protocol 11/26/18 09:45 12/26/18 09:44 Vancomycin HCl 750 mg/Sodium Chloride 275 ml @ 183.333 mls/hr Q8HR@0400,1200,2000 IVPB 11/26/18 20:00 12/01/18 19:59 11/26/18 15:32 Assessment/Plan Problem List: (1) toxic enecephalopathy acute Assessment/Plan ?drug abuse? the pt was given cocktail meds cont restraints. Felicia Ojeda MD Nov 26, 2018 22:39
--- NOTE | 2018-11-27 02:00 | NUR ---
Pt observed with restraints off. Had to reapply. Pt was combative and agitated. Reapplied restraints. Will continue to monitor.
[2018-11-27] MEDS: Ampicillin 2 GM in NS 110 ML IV SCH (02:07)
[2018-11-27] MEDS: LORazepam Inj 2mg/ml 1ml IM PRN (02:19)
[2018-11-27 04:05] VITALS: BP 93/51
[2018-11-27] MEDS: D5NS 1,000 ML IV SCH (06:00)
--- NOTE | 2018-11-27 07:18 | NUR ---
HAND-OFF: Report given to LILIAM Tijerina.
--- NOTE | 2018-11-27 07:38 | NUR ---
NURSE NOTES: Received patient in bed, resting. No signs of respiratory distress, patient in room air. IVF running. Bilateral wrist restraints on. Bed in lowest position, will continue to monitor.
[2018-11-27 08:00] VITALS: BP 122/69
[2018-11-27] MEDS: Oseltamivir 75mg cap ORAL SCH (08:39)
[2018-11-27] MEDS: Heparin 5000 units/ml inj SUBQ SCH (08:39)
[2018-11-27] MEDS: Azithromycin 250mg tab ORAL SCH (08:39)
[2018-11-27] MEDS ORDERED: Tubing IV Secondary IV ONE (09:19)
[2018-11-27] MEDS ORDERED: D5NS 1000ml IV ONE (09:19)
--- NOTE | 2018-11-27 09:20 | NUR ---
CHARGE NURSE NOTES: 899 PATIENT ALERT, ORIENTED. AMBULATORY AT THIS TIME. VERBALIZING WANTS TO LEAVE AMA. REFUSING DUE MEDS. CONTACTED DR. MOTTA. PER , CLEARED FROM PSYCH. RISK AND BENEFITS EXPLAINED TO PATIENT. VERBALIZED UNDERSTANDING. 929 PATIENT LEFT AMA. WITH BELONGINGS. NO IV ACCESS. ACCOMPANIED BY SECURITY TO LOBBY. DR. VALLADARES AWARE OF INCIDENT.
--- NOTE | 2018-11-27 09:30 | NUR ---
NURSE NOTES: Patient assisted to bathroom to wash hair and wash self. Restraints removed and skin assessed. No breakdown and pulses palpable. After washing self, patient returned to chair to eat breakfast. Afterwards, patient began to put on his clothes stating he is ready to leave and we cannot hold him here. Notified e tailer. Attempted to get patient back in bed but patient refused. Security called. e tailer called Psych MD and MD given clearance for AMA. Primary MD notified and housekeeping director in station, made aware. Explained to patient he is receiving antibiotics and awaiting more consults and should stay, however, patient continues to insist on leaving AMA. Patient had removed IV before and ID band removed. Patient refused to go over belongings list stating, "I have everything". Patient refused any additional resources for shelters or referrals, stated he had somewhere to go.
--- NOTE | 2018-11-27 10:00 | NUR ---
NURSE NOTES: Ativan and haldol were removed and drawn by RN to administer because patient had become aggressive. When RN aware patient cleared for DC per psych, medication held. Wasted in appropriate container, straight ruling machine operator Babita marrero.
[2018-11-27] MEDS ORDERED: cefTRIAXone 2 GM in D5W 55 ML IVPB SCH (14:00)
--- NOTE | 2018-11-27 21:42 | General Progress Note ---
Assessment/Plan Problem List: (1) toxic enecephalopathy acute Status: stable, progressing Assessment/Plan the pt has capacity to leave ama Subjective Neurologic/Psychiatric: Reports: anxiety Allergies: Coded Allergies: No Known Allergies (Unverified , 11/25/18) Subjective the pt was alert and oriented he stated that he wanted to leave ama. the pt was able to understand the risks of leaving ama Objective Last 24 Hour Vital Signs Date Time Temp Pulse Resp B/P (MAP) Pulse Ox O2 Delivery O2 Flow Rate FiO2 11/27/18 08:00 98.3 88 18 122/69 (86) 98 11/27/18 04:05 97.5 71 20 93/51 (65) 99 Intake and Output 11/26/18 11/27/18 19:00 07:00 Intake Total 675.000 ml 940 ml Balance 675.000 ml 940 ml Intake Oral 120 ml IV Total 475.000 ml 820 ml Other 200 ml # Voids 1 Height (Feet): 5 Height (Inches): 9.00 Weight (Pounds): 140 General Appearance: WD/WN, alert Neurologic: alert, oriented x 3, responsive, normal mood/affect Felicia Ojeda MD Nov 27, 2018 21:42
--- NOTE | 2018-11-28 13:07 | Discharge Summary ---
Discharge Summary Discharge Summary _ DATE OF ADMISSION: 11/25/2018 DATE OF DISCHARGE: 11/27/2018 Patient signed AGAINST MEDICAL ADVICE REASON FOR ADMISSION: 33 years old male with past medical history of bipolar disorder, was brought by ambulance for behavioral disturbances. Patient reported hearing voices , but denied suicidal or homicidal ideations. Upon evaluation patient was febrile, tachycardic , pulse oximetry was stable on room air . Patient reported non productive cough . Chest x-ray revealed no evidence of acute cardiopulmonary pathology. Laboratory workup revealed mild elevation of WBC with shift to the left. Patient was given antipyretic , and started on Tamiflu and empiric antibiotic to cover for possible influenza and bacterial infection. Chemistry was unremarkable. Urinalysis revealed no evidence of UTI. Lactic acid was within normal limits. Urine toxicology screen was negative. Serum alcohol, Tylenol , and salicylate levels were all negative. Rapid influenza screen test was negative. CT of the head revealed no evidence of acute infarct , hemorrhage, mass or edema. Patient undergone lumbar puncture in emergency department . Patient was admitted for further management. CONSULTANTS: ID specialist psychiatrist [facility] COURSE: Patient admitted to medical surgical floor , pancultured and started on empiric antibiotic. ID specialist closely followed. Infectious disease doctor carefully reviewed results of spinal fluid and doubted meningitis. Per ID specialist, possibly influenza infection ( despite negative raid influenza screen) versus viral syndrome. Patient was on empiric antibiotic as per ID recommendation . Blood culture preliminary negative. Cerebrospinal fluid culture preliminary negative. Leukocytosis resolved. Fevers resolved after 24 hours. Supplemental oxygen provided as needed to keep above 92%. Pulmonary toilet provided. Pulse oximetry was stable on room air . DVT prophylaxis provided. Psychiatrist closely followed and diagnosed patient with acute toxic encephalopathy . Reality orientation and supportive therapy provided. Patient verbalized desire to leave AGAINST MEDICAL ADVICE. Per psychiatrist, patient was capable to leave AGAINST MEDICAL ADVICE. The risks and consequences of signing AGAINST MEDICAL ADVICE were discussed with patient in detail. Patient verbalized understanding, nevertheless signed AMA form and left. FINAL DIAGNOSES: Possible sepsis Leukocytosis - resolved Possible influenza infection Possible viral syndrome Altered mental status due to acute toxic encephalopathy Bipolar disorder I have been assigned to dictate discharge summary for this account. I was not involved in the patient's management. Jenifer Stein NP Nov 28, 2018 13:07
== END 2018-11-27 09:20 | disposition left against medical advice (07) | DRG 871 ==
LOC: EDBD 19:02 → EMR 19:21 → 4E 21:48 → EDBEDREQ 22:59
PROC: 009U3ZX Drainage of Spinal Canal, Percutaneous Approach, Diagnostic (ICD-10-PCS; principal; 2018-11-25)
DX: A41.9 Sepsis, unspecified organism (principal); G92 Toxic encephalopathy; B34.9 Viral infection, unspecified; J11.1 Influenza due to unidentified influenza virus with other respiratory manifestations; F31.9 Bipolar disorder, unspecified
CPT/HCPCS: 36415; 62270; 70450; 71045; 80048; 80053; 80307; 80329; 81003; 82945; 83605; 84157; 85025; 86703; 86710; 87040; 87070; 87081; 87205; 89051; 96365; 96372; 96375; 99285